=== PATIENT | female | born 1995 | race Hispanic/Latino ===

== ENCOUNTER 2017-08-21 23:04 | Emergency (ER) | payer BC ==
[2017-08-21 23:47] VITALS: BP 127/78; PULSE 79; RESP 16; TEMP 98; O2SAT 100
--- NOTE | 2017-08-21 23:54 | CP.PCM.CON ---
History of Present Illness - History of Present Illness History of Present Illness: 21 y/o female with PMHx of asthma seen at bedside in ED complaining of left ankle pain. 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 Patient states that she sustained left ankle injury about 2 hours ago while practicing. Patient states that she was seen at a medical center at her school and was told that it wasn't anything major but should still get it checked. Patient states that when the injury occured the pain was about 8/10 on VAS but has gotten a lot better since then since she hasn 't been moving her foot. Patient states that she took alive for the pain as well which reduced her pain. Patient denies of any other pedal complains now. Patient denies of any recent F/N/V/C/SOB/CP today. PMHx: Exercise induced Asthma PSHx: denies Allergies: N.K.D.A Review of Systems - Constitutional Constitutional: As Per HPI Past Patient History - Past Social History Smoking Status: Never Smoked - PULMONARY Hx Asthma: Yes - PSYCHIATRIC Hx Substance Use: No Meds Allergies/Adverse Reactions: Allergies Allergy/AdvReac Type Severity Reaction Status Date / Time No Known Allergies Allergy Verified 08/12/16 20:14 Physical Exam - Constitutional Appears: Well, Non-toxic, No Acute Distress - Extremities Exam Additional comments: Left Lower extremity focused exam: VASC: DP/PT pulses are palpable 2/4, Cap Refill time: < 3 sec to all digits, Temp gradient: warm to cool from proximal to distal, mild non-pitting edema noted to the lateral ankle of the left foot DERM: no erythema, no open lesions, no clinical suspicion of active infection NEURO: Protective sensation grossly intact ORTHO: pain present on palpation superficial to the deltoid ligaments, pain during palpation superficial to the ATFL ligament, pain on palpation to the posterior aspect of the lateral malleolus, patient is guarding due to pain on her ankle during active ROM, active Dorsiflexion, plantarflexion inversion and eversion is limited, no pain on palpation of the base of the 5th metatarsal, no pain along the course of the peroneal tendons - Neurological Exam Neurological exam: Alert, Oriented x3 - Psychiatric Exam Psychiatric exam: Normal Affect, Normal Mood Results - Vital Signs Recent Vital Signs: Last Vital Signs Temp 98.0 F 08/21/17 23:45 Pulse 79 08/21/17 23:45 Resp 16 08/21/17 23:45 BP 127/78 08/21/17 23:45 Pulse Ox 100 08/21/17 23:45 Assessment & Plan - Assessment and Plan (Free Text) Assessment: 21 y/o female seen at bedside in ED for suspected syndesmotic, medial and lateral collateral ligament rupture Plan: Patient seen and evaluated at bedside in ED Patient discussed in details with attending Dr. Chapa Vitals and charts reviewed X-rays of foot, ankle and high tib-fib reviewed: - increase in medial clearing space along with no tib-fib overlap or the lateral talar dome overlap on the AP view of the left ankle possibly indicating a diastatic injury of the syndesmosis, lateral collateral and medial collateral ligaments, no evidence of acute fracture or displacement of the joints noted on foot, ankle or high tib-fib view of the left lower extremity Patient placed in a posterior splint and advised to remain on strict NWB - educated to use crutches Patient educated to Ice, elevate and rest her left lower extremity Patient educated to refrain from any sports activities Patient educated to follow up in podiatry clinic for further evaluation Patient demonstrated verbal understanding Thank you for the podiatry consult - Date & Time Date: 08/22/17 Time: 00:33
--- NOTE | 2017-08-22 00:25 | ED PDOC ---
Lower Extremity Pain/Injury Time Seen by Provider: 08/21/17 23:56 Chief Complaint (Nursing): Lower Extremity Problem/Injury Chief Complaint (Provider): Lower Extremity Injury History Per: Patient History/Exam Limitations: no limitations Onset/Duration Of Symptoms: Hrs (since earlier today) Current Symptoms Are (Timing): Still Present Additional Complaint(s): 21 year old female presents to ED with complaints of left ankle pain since earlier today and has a past medical history of asthma. Notes that she rolled her ankle playing volleyball and was seen earlier at the student health clinic at [place] before being sent home. States she presents to ED for an evaluation. PCP: TBD - Ankle/Foot Description Of Injury: Twisted Past Medical History Reviewed: Historical Data, Nursing Documentation, Vital Signs Vital Signs: Last Vital Signs Temp 98.0 F 08/21/17 23:45 Pulse 79 08/21/17 23:45 Resp 16 08/21/17 23:45 BP 127/78 08/21/17 23:45 Pulse Ox 100 08/21/17 23:45 - Medical History PMH: Asthma Denies: No Chronic Diseases - Family History Family History: States: Unknown Family Hx - Social History Current smoker - smoking cessation education provided: No Ex-Smoker (has not smoked in the last 12 months): No Drugs: Denies - Home Medications Home Medications: Ambulatory Orders Medication Instructions Recorded Albuterol 0.083% [Albuterol 0.083% 2.5 mg IH Q4 PRN #50 neb 08/12/16 Inhal Any (2.5 mg/3 ml) UD] Nebulizer [Aeroeclipse] 1 each MC Q4 PRN #1 each 08/12/16 Azithromycin [Zithromax] 250 mg PO DAILY #1 packet 08/31/16 Promethazine DM [Phenergan DM Oral 5 ml PO Q6H PRN #100 dose 08/31/16 Syrup] Ibuprofen [Motrin Tab] 600 mg PO Q6 #30 tab 08/22/17 - Allergies Allergies/Adverse Reactions: Allergies Allergy/AdvReac Type Severity Reaction Status Date / Time No Known Allergies Allergy Verified 08/12/16 20:14 Wells Criteria for PE - Wells Criteria for Pulmonary Embolism Clinical Signs and Symptoms of DVT: No P.E is #1 Diagnosis, or Equally Likely: No Heart Rate >100: No Immobilization at least 3 days;Surgery previous 4 weeks: No Previous, objectively diagnosed PE or DVT: No Hemoptysis: No Malignancy w/treatment within 6 months, or palliative: No Total Score: 0 Review of Systems ROS Statement: Except As Marked, All Systems Reviewed And Found Negative Musculoskeletal: Positive for: Other ((+) left ankle pain) Physical Exam - Reviewed Nursing Documentation Reviewed: Yes Vital Signs Reviewed: Yes - Physical Exam Appears: Positive for: Non-toxic, No Acute Distress Skin: Positive for: Normal Color, Warm, Dry Respiratory: Negative for: Respiratory Distress Pulses-Dorsalis Pedis (L): 2+ Pulses-Dorsalis Pedis (R): 2+ Extremity: Positive for: Normal ROM (able to dorsiflex and plantarflex), Tenderness (tenderness to lateral left malleolus), Swelling (swelling to lateral malleolus of left ankle). Negative for: Calf Tenderness, Deformity - ECG O2 Sat by Pulse Oximetry: 100 (RA) Pulse Ox Interpretation: Normal Medical Decision Making Medical Decision Makin Initial impression: ankle sprain Initial plan: * XR ANKLE LEFT * XR FOOT LEFT * XR TIBIA FIBULA LEFT 130: Pt. seen and examined by podiatry. Will d/c home with f/u instructions. Scribe Attestation: Documented by Imelda Zuniga acting as a scribe for Doyle Burris MD. Scribe Attestation: All medical record entries made by the Scribe were at my direction and personally dictated by me. I have reviewed the chart and agree that the record accurately reflects my personal performance of the history, physical exam, medical decision making, and the department course for this patient. I have also personally directed, reviewed, and agree with the discharge instructions and disposition. Disposition - Clinical Impression Clinical Impression: Ankle injury - Disposition Referrals: Podiatry Clinic [Outside] Disposition Time: 01:30 Condition: STABLE Prescriptions: Ibuprofen [Motrin Tab] 600 mg PO Q6 #30 tab Instructions: Ankle Sprain (ED), Crutch Instructions (ED) Forms: [employer] ([place])
--- NOTE | 2017-08-22 11:06 | RAD ---
PROCEDURE: Radiographs of the left tibia and fibula. HISTORY: left foot injury COMPARISON: None available. TECHNIQUE: Frontal and lateral views obtained. FINDINGS: BONES: No fracture or destructive lesion. JOINT SPACES: Unremarkable. OTHER FINDINGS: None. IMPRESSION: Unremarkable radiographs of the left tibia and fibula.
--- NOTE | 2017-08-22 11:07 | RAD ---
PROCEDURE: Left Ankle Radiographs. HISTORY: left ankle injury COMPARISON: None FINDINGS: BONES: Normal. No fracture. JOINTS: Normal. No osteoarthritis. Ankle mortise maintained. Talar dome intact SOFT TISSUES: Lateral soft tissue swelling. This may indicate a ligamentous injury. OTHER FINDINGS: None. IMPRESSION: No acute fracture. Lateral soft tissue swelling noted.
--- NOTE | 2017-08-22 11:07 | RAD ---
PROCEDURE: Left Foot Radiographs. HISTORY: ankle injury COMPARISON: None. FINDINGS: BONES: Normal. No fracture. JOINTS: Normal. SOFT TISSUES: Normal. OTHER FINDINGS: None. IMPRESSION: Normal left foot radiographs.
== END 2017-08-22 01:23 | disposition home or self-care (01) ==
LOC: H.ER 23:04
DX: S93.492A Sprain of other ligament of left ankle, initial encounter (principal); X50.1XXA Overexertion from prolonged static or awkward postures, initial encounter; Y93.68 Activity, volleyball (beach) (court); Y92.9 Unspecified place or not applicable